=== PATIENT | male | born 1955 | race Caucasian/White ===

== ENCOUNTER 2018-10-08 06:53 | Observation (INO) | payer BC ==
[~2018-10-08] VITALS: Ht 170.2 cm; Wt 67.6 kg
[2018-10-08 06:58] VITALS: Ht 170.2 cm; Wt 67.6 kg
[2018-10-08 07:31] LABS: BASOPHIL % 0.7 % (0-2); PLATELET COUNT 191 x10^3mcL (130-400)
[2018-10-08 07:33] LABS: RED CELL DISTRIBUTION WIDTH 14.9 % (11.5-14.5)
[2018-10-08 07:42] LABS: CALCIUM 8.2 mg/dL (8.5-10.1); CARBON DIOXIDE 24.8 mmol/L (21-32); CHLORIDE SERUM 103 mmol/L (98-107); CREATININE SERUM 0.9 mg/dL (0.7-1.3); GFR1 > 60 mL/min; GLUCOSE SERUM 178 mg/dL (74-106); POTASSIUM SERUM 3.7 mmol/L (3.5-5.1); SODIUM SERUM 138 mmol/L (136-145)
[2018-10-08 07:46] LABS: ALBUMIN 3.6 g/dL (3.4-5.0); ALKALINE PHOSPHATASE 51 U/L (46-116); ALT/SGPT 26 U/L (16-63); AST/SGOT 12 U/L (15-37); BILIRUBIN TOTAL 0.3 mg/dL (0.20-1.00); CHOLESTEROL 147 mg/dL (<200); CHOLESTEROL/HDL RATIO 3.3; HDL CHOLESTEROL 45 mg/dL (40-60); LIPASE 145 IU/L (73-393); TRIGLYCERIDES 44 mg/dL (<150)
--- NOTE | 2018-10-08 07:53 | NUR ---
PT BIBA S/P NEAR SYNCOPAL. PT AAOX4. PT REPORT HAVING SOME DIZZINESS STILL AND A PFEIFFER RATED 3/10. BG IN TRANSPORT WAS 200, PER PARAMEDICS. PT IS SCHEDULED FOR A STENT PLACEMENT FOR A PARTIALLY OCCLUDED ARTERY. PT DENIES C/P. PT ABLE TO FOLLOW COMMANDS. PT DENIES LOC. PT ON FULL CM. RESP E/U. NAD. VITALS STABLE AT THIS TIME. MSE COMPLETED BY DR MISHRA.
[2018-10-08 08:07] LABS: FREE T4 0.89 ng/dL (0.76-1.46); FREE THYROXINE INDEX 2.9 ug/dL (1.4-4.5)
[2018-10-08 08:25] LABS: T3 TOTAL 0.87 ng/mL
--- NOTE | 2018-10-08 08:25 | NUR ---
PT AWAKE, ALERT, OX4, NO SOB, NO CP, STATES A LITTLE DIZZY. SINUS ROSEANN ON AREA SAFETY MANAGER 58/MIN. AWARE NEED UA SAMPLE. URINAL AT BEDSIDE.
[2018-10-08] MEDS ORDERED: METFORMIN HYDR500 M1 PO (08:49)
[2018-10-08] MEDS ORDERED: LOSARTAN POTASS25 M1 PO (08:49)
[2018-10-08] MEDS ORDERED: ASPIR 8181 MG PO (08:50)
[2018-10-08 09:00] LABS: microscopic required? NO
[2018-10-08 09:02] LABS: UA SPECIFIC GRAVITY 1.015 (1.005-1.035); urine erythrocyte NEGATIVE (NEGATIVE)
--- NOTE | 2018-10-08 09:15 | NUR ---
REPORT GIVEN TO DIEGO QUEEN NURSE
--- NOTE | 2018-10-08 09:23 | NUR ---
RECEIVED PT FROM ER. ADMISSION HISTORY AND ASSESSMENT IS DONE. DENIES ANY PAIN. MILD DIZZINESS STATED. SB WITH 53 ON THE MONITOR. DENIES CHEST PAIN. AWARE ABOUT PT'S RHYTHM AND C/O DIZZINESS. ALSO HE IS AWARE ABOUT CHEST XRAY RESULT AND BUN IS 26. SAFTEY PRECAUTIONS ARE IN PLACE. WILL MONITOR.
--- NOTE | 2018-10-08 10:30 | NUR ---
PT SAID HE DOESNOT FEEL DIZZINESS ANYMORE. NSR WITH HR 62 ON THE MONITOR THIS TIME. FAMILY AT BEDSIDE. STABLE. WILL MONITOR.
[2018-10-08 12:37] VITALS: BP 139/72
[2018-10-08 12:49] VITALS: BP 114/62
--- NOTE | 2018-10-08 14:00 | NUR ---
PT RESTING IN BED COMFORTABLY. DENIES PAIN THIS TIME. NO DIZZINESS/SYNCOPE THIS TIME. NSR WITH HR 66 THIS TIME. STABLE.
--- NOTE | 2018-10-08 17:55 | NUR ---
CAME AND SPOKE WITH PT AND HIS DAUGHTER. HE STARTED PT ON LIPITOR.
[2018-10-08 17:59] VITALS: BP 126/71
--- NOTE | 2018-10-08 18:00 | NUR ---
PATIENT HAS ORDER TO TRANSFER TO [facility] FOR CARDIOTHORACIC SURGERY. PALM GATHERER -LADY JACOBS AWARE. ATTENDING NURSE BERNICE AWARE.
--- NOTE | 2018-10-08 18:35 | NUR ---
PER CARDBOARD CUTTER [facility] WAS CALLED RE: TRANSFER ORDER. WILL CONTINUE TO FOLLOW UP WITH CARDBOARD CUTTER RE: TRANSFER UPDATES.
--- NOTE | 2018-10-08 19:20 | NUR ---
PT RESTING IN BED COMFORTABLY. DENIES ANY PAIN. NO DIZZINESS NOTED. PT MAY TRANSFER TO [facility] IF BED AVAILABLE PER CHARGE NURSE. GAVE REPORT TO MACHINE SHOP HELPER NURSE.
--- NOTE | 2018-10-08 19:43 | NUR ---
Awake and verbally responsive. No respiratory distress noted. Denies pain at this time. Denies n/v. Normal sinus rhythm. Family visting. Will cont.to monitor. Call light withn reach.
--- NOTE | 2018-10-08 19:57 | NUR ---
follow up with perennial house manager (joshua[facility] stated will follow up.
--- NOTE | 2018-10-08 20:20 | NUR ---
FOLLOWED UP WITH [facility] REGARDING BED AVAILABILITY FOR PT TO BE TRANSFERED TONIGHT IN [place] FOR HIGHER LEVEL OF CARE. [facility] SAID THEY ARE NOT ABLE TO GIVE THE AUTHORIZATION YET AND NO BED AVAILABILTIY AND THEY WANT THE FORM TO BE FILLED UP "TRANSFER BACK AGREEMENT" TO BE FILLED UP BY EITHER THE CNO,IT SYSTEMS MANAGER, VALVE FITTER OR THE DIRECTOR OF THE CASE MANAGEMENT. [facility] SAID THIS CASE WILL ALSO BE FOLLOWED UP BY TERRENCE MONSON WHO WORK IN THE [employer]ICE DEPARTMENT. TELEPHONE NUMBER [phone]. SO THEY ARE UNABLE TO OBTAIN AUTHORIZATION UNTIL TOMORROW. CHARGE NURSE JC MADE AWARE.
--- NOTE | 2018-10-08 20:30 | NUR ---
got update from house painter about the transfer of this patient.see house sup noted. will relay this information to assign nurse morgan and patient.
--- NOTE | 2018-10-08 20:39 | NUR ---
Patient kept informed regarding the transfer to [facility]osp. No bed available at this time.
[2018-10-08 20:43] VITALS: BP 128/78
--- NOTE | 2018-10-08 21:21 | NUR ---
NOTIFIED [facility] [employer]LE AND AUTHORIZED AND APPROVED THE "TRANSFER BACK AGREEMENT," FAXED TO Leonel ANDRADE RN THE NURSING POSTAL CLERK OF [facility], WHO VERIFIED RECIEPT OF FAXED TRANSFER BACK AGREEMENT FORM. LEONEL STATED THEY WILL CONTINUE TO OBTAIN AUTHORIZATION OF PT'S INSURANCE TOMORROW. CHARGE NURSE JC MADE AWARE OF THE PLAN.
--- NOTE | 2018-10-08 21:32 | NUR ---
RECEIVED A CALL BACK FROM MITER CUTTER ARMANDO ON THE UPDATE OF TRANSFER, SEE NOTES. WILL RELAY PROGRESS TO ASSIGNED NURSE.
--- NOTE | 2018-10-09 04:05 | NUR ---
Afebrile. No significant change in condition noted. Denies chest pain. Denies SOB. Resting comfortably in bed. In no apparent distress. Pending transfer to [facility].
[2018-10-09 05:45] VITALS: BP 117/60
[2018-10-09 06:19] LABS: BASOPHIL % 0.9 % (0-2); PLATELET COUNT 208 x10^3mcL (130-400)
[2018-10-09 06:36] LABS: CARBON DIOXIDE 27.5 mmol/L (21-32); CHLORIDE SERUM 105 mmol/L (98-107); CREATININE SERUM 0.7 mg/dL (0.7-1.3); GFR1 > 60 mL/min; GLUCOSE SERUM 119 mg/dL (74-106); POTASSIUM SERUM 4.7 mmol/L (3.5-5.1); SODIUM SERUM 142 mmol/L (136-145)
--- NOTE | 2018-10-09 07:09 | NUR ---
Bedside handoff report done with IONA Laureano.
[2018-10-09 07:11] LABS: RED CELL DISTRIBUTION WIDTH 14.6 % (11.5-14.5)
--- NOTE | 2018-10-09 07:45 | NUR ---
ALERT AND ORIENTED. SITTING UP IN BED EATING BREAKFAST. GOOD APPETITE. DENIES ANY PAIN. ADMITS TO FEELING LIGHTHEADED. NO EDEMA. PALPABLE PULSES. TELE # 15 NSR. CHANGED BATTERIES. VSS. WAITING FOR INSURANCE APPROVAL FOR TRANSFER TO [facility]. SL TO LEFT FA PATENT. CALL LIGHT WITHIN REACH.
[2018-10-09 09:01] VITALS: BP 128/77
--- NOTE | 2018-10-09 11:13 | NUR ---
TURNED PT CARE OVER TO YAIR DIOP. PT STABLE AT THIS TIME. WAITING FOR BED AT [place].
--- NOTE | 2018-10-09 11:13 | NUR ---
ASSUMED CARE OF PATIENT FROM ZULEMA SAENZ RN AT THIS TIME. MET PATIENT AND FAMILY AT BEDSIDE, PATIENT UP OOB TO THE BATHROOM, REQUESTING TO WASH UP. SUPPLIES GIVEN. PATIENT TURKISH SPEAKING, FAMILY MEMBER TRANSLATES. PATIENT DENIES ANY PAIN OR DISCOMFORT. NO DIZZINESS AT THIS TIME. WILL CONTINUE TO MONITOR.
--- NOTE | 2018-10-09 12:19 | NUR ---
PATIENT SITTING UP ON THE SIDE OF THE BED PLAYING CARDS WITH FAMILY MEMBER. CONTINUES TO DENY ANY PAIN BUT PER PATIENT HE FEELS A LITTLE DIZZY OFF AND ON. NO ACUTE DISTRESS NOTED. AWAITING BED AT [facility] FOR TRANSFER. WILL CONTINUE TO MONITOR.
--- NOTE | 2018-10-09 12:57 | NUR ---
PATIENT SITTING UP ON THE SIDE OF THE BED EATING LUNCH TRAY. NO ACUTE DISTRESS NOTED. WILL CONTINUE TO MONITOR.
--- NOTE | 2018-10-09 13:16 | NUR ---
RECEIVED PT IN BED. RESP EQUAL AND UNLABORED, NO REPORTS OF CP OR SOB. PT REPORTED HAVING MILD DIZZINESS UPON AMBULATION. AWAITING ROOM FOR [facility]. WILL CONTINUE TO MONITOR
[2018-10-09 16:29] VITALS: BP 123/67
--- NOTE | 2018-10-09 16:55 | NUR ---
RECEIVED CALL FROM LITHARGE MILL OPERATOR ANA FLORES. REPORTED THAT PT IS HAVING SURGERY AT [facility] ON Friday10/12/18 AND [facility] WILL PROVIDE A BED FOR THE PATIENT ON 10/11/18. TRANSPORTATION HAS BEEN ARRANGED ON WILL CALL. PATIENT AND DR GOODMAN MADE AWARE
--- NOTE | 2018-10-09 18:39 | NUR ---
PT RESTING IN BED. NO DISTRESS REPORTED. WILL ENDORSE TO ONCOMING SHIFT
--- NOTE | 2018-10-09 20:00 | NUR ---
RECEIVED PT IN BED, ALERT AND ORIENTED. RESTING QUIETLY. DENIES HEADACHE/DIZZINESS. RESP. EVEN AND UNLABORED. LUNG SOUNDS CLEAR BILAT. ON ROOM AIR, DENIES SOB. NO ACUTE DISTRESS NOTED. SR ON THE MONITOR, DENIES CHEST PAIN OR ANY DISCOMFORT AT THIS TIME. AFEBRILE AND VITAL SIGNS STABLE. HL TO LFA, INTACT AND PATENT. AMBULATORY. VOIDING FREELY. ASSISTED WITH HS CARE. CALL LIGHT WITHIN REACH. WILL CONTINUE TO MONITOR.
[2018-10-09 20:15] VITALS: BP 111/65
--- NOTE | 2018-10-10 00:58 | NUR ---
ASLEEP, EASILY AROUSABLE. RESP. EVEN AND UNLABORED. NO ACUTE DISTRESS NOTED. CALL LIGHT WITHIN REACH. WILL CONTINUE TO MONITOR.
[2018-10-10 05:53] VITALS: BP 110/54
--- NOTE | 2018-10-10 06:18 | NUR ---
NO COMPLAINTS NOTED DURING THE NIGHT. SLEPT WELL. RESP. EVEN AND UNLABORED. NO ACUTE DISTRESS NOTED. AFEBRILE AND VITAL SIGNS STABLE. DENIES CHEST PAIN OR ANY DISCOMFORT AT THIS TIME. KEPT COMFORTABLE. VOIDING FREELY. WILL CONTINUE TO MONITOR.
--- NOTE | 2018-10-10 07:30 | NUR ---
ALERT AND ORIENTED. BREATHING FREELY ON RA. DENIES ANY PAIN OR LIGHTHEADEDNESS. TELE # 15 NSR. INDEPENDENT W ADL'S. SL TO LEFT FA. RECEIVES [employer]otor SQ. VSS. CALL LIGHT WITHIN REACH.
[2018-10-10 07:51] VITALS: BP 131/80
--- NOTE | 2018-10-10 09:31 | NUR ---
SPOKE WITH DR. EGAN RE: LOVENOX AND PT SURGERY FRIDAY. OK TO GIVE LOVENOX TODAY AND TOMORROW AM.
[2018-10-10 11:40] VITALS: BP 109/63
[2018-10-10 16:08] VITALS: BP 117/71
--- NOTE | 2018-10-10 19:07 | NUR ---
SITTING UP IN CHAIR VISITING WITH FAMILY. BREATHING FREELY ON RA. VERY LITTLE DIZZINESS, NO H/A. INDEPENDENT W ADL'S. WAITING FOR TRANSFER TO [place] TOMORROW NIGHT OR EARLY FRIDAY AM. NO CHEST PAIN NO SOB.
[2018-10-10 19:30] VITALS: BP 123/75
--- NOTE | 2018-10-10 19:30 | NUR ---
RECEIVED PT AWAKE ALERT AND VERBALLY RESPONSIVE IN [place].DENIES HEADACHE BUT WITH SLIGHT DIZZINESS VERBALIZED.DENIES CHESTPAIN.BP 123/75 MMHG,HR 63.ENCOURAGED TO CALL FOR ASSISTANCE AT ALL TIMES.WILL CONTINUE TO MONITOR.
--- NOTE | 2018-10-11 04:39 | NUR ---
PT SLEPT WELL.NO SYNCOPAL EPISODE ALL NIGHT.DENIES CHESTPAIN.ALL NEEDS MET.WILL CONTINUE TO MONITOR.
[2018-10-11 06:10] VITALS: BP 117/57
--- NOTE | 2018-10-11 07:30 | NUR ---
ALERT AND ORIENTED. SITTING UP AT EDGE OF BED FOR BREAKFAST. INDEPENDENT W ADL'S. BREATHING FREELY ON RA. DENIES ANY PAIN. TELE # 15 NSR. BRP. VSS. CALL LIGHT WITHIN REACH. TRANSFER THIS EVENING OR FRIDAY AM TO [facility].
[2018-10-11 09:15] VITALS: BP 128/69
[2018-10-11 12:59] VITALS: BP 113/59
[2018-10-11 14:41] VITALS: BP 113/59
--- NOTE | 2018-10-11 14:53 | NUR ---
RECEIVED A CALL FROM RONAK(MANUFACTURING QUALITY INSPECTOR), SHE HAD RECEIVED A CALL FROM [facility] OF BED CONFIRMATION, PT GOING TO [id number], TO CALL REPORT CALLED TO [facility] AND TRANSPORTATION TIME ARRANGED AND [facility] TRANSPORT WILL BE COMING IN AN HOUR. ZULEMA RN ASSIGNED TO THIS PT MADE AWARE OF ABOVE.
--- NOTE | 2018-10-11 15:17 | NUR ---
PATIENT FOR TRANSFER TO [facility]. REPORT GIVEN TO RN BRANDON MEJIA. 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 TELE # RETURNED TO TELE STATION. HEP LOCK IN PLACE FOR TRANSPORT. TRANSFER PAPERS SIGNED BY PATIENT.
--- NOTE | 2018-10-11 17:20 | NUR ---
LEFT VIA [place] /JACK FOR [facility].
== END 2018-10-11 17:30 | DRG 307 ==
LOC: ED 06:53 → DU 08:47
PROVIDERS: Specialist; ADMIT Internal Medicine
DX: I35.0 Nonrheumatic aortic (valve) stenosis (principal); R55 Syncope and collapse; I11.9 Hypertensive heart disease without heart failure; I25.10 Atherosclerotic heart disease of native coronary artery without angina pectoris; E11.9 Type 2 diabetes mellitus without complications; E78.5 Hyperlipidemia, unspecified
CPT/HCPCS: 82962; 83880; 84439; 90732; G0378; J1650; J7030; Q0092